=== PATIENT | male | born 1975 | race Caucasian/White ===

== ENCOUNTER → 2020-12-23 | Day surgery (SDC) | payer OTHER ==
[~2020-12-23] MED LIST: KLOR-CON M2020 MEQ PO; LISINOPRIL-HCT1 EAC2 PO; VITAMIN D310 MC2 PO
--- NOTE | ~2020-12-23 | PROC ---
[address] [address] PROCEDURE REPORT Name: JERE BURROUGHS Room: [facility]#: [id number] Admission: 12/23/20 Attend Phys: Bladimir Vaca DO Discharge: Date of : 73 Report #: [id number] THIS REPORT FOR: cc: MARY RAY DO Physician not on staff [facility],Medical Records Staff ~ For GI report, please see the Provation report in Perceptive 7 content. By: [id number] Records Staff [facility] /STELLA
[2020-12-23 09:24] LABS: HEMATOCRIT 43.8 % (42.0-52.0); MCH 27.8 pg (26.0-34.0); MCHC 34.4 g/dL (28.0-37.0); MCV 80.8 fL (80.0-100.0); MPV 7.1 fl. (7.2-11.1); RBC 5.41 mil/uL (4.50-6.00); WBC 5.1 thou/uL (4.0-11.0)
[2020-12-23 09:31] LABS: CALCIUM 9.3 mg/dL (8.5-10.1); CREATININE 1.1 mg/dL (0.6-1.3); POTASSIUM 3.5 mmol/L (3.5-5.1)
--- NOTE | 2020-12-23 13:36 | EKG ---
[place] [address] ELECTROCARDIOGRAM REPORT Name: HEIKEJERE Vega Room: [facility]#: [id number] Admission: 12/23/20 Attend Phys: Bladimir Vaca, Discharge: Date of : 73 Date of Service: 12/23/20 0943 Report #: [id number] THIS REPORT FOR: //name// [facility] Test Date: 2020-12-23 Test Time: 09:43:59 Pat Name: JERE BURROUGHS Department: Room: Gender: Nut Feeder: : 1975 Requested By: Bianca Del Angel Order Number: [id number] Harini MD: Moe Garrison Measurements Intervals [place] Rate: 70 P: 46 NH: 175 QRS: -32 QRSD: 115 T: 36 QT: 384 QTc: 415 Interpretive Statements Sinus rhythm Left ventricular hypertrophy Anterior ST elevation, probably due to LVH No previous ECG available for comparison Electronically Signed On 12-23-2020 13:35:39 CDT by Moe Garrison [email or web address] <ELECTRONICALLY SIGNED> By: Moe Garrison MD, [facility] 12/23/20 1335 0943 0943 Moe Garrison MD, [facility] /EPI
--- NOTE | 2020-12-29 11:07 | PATH ---
[address] [address] PATHOLOGY RPT PROCEDURE Name: KAN BURROUGHS Room: [facility]#: [id number] Admission: 12/23/20 Date of : 73 Discharge: Report #: [id number] Path Case #: [id number] [facility] Accession Number: [id number] . 01 Material submitted: . PART A: colon - PROXIMAL ASCENDING COLON POLYP COLD SNARE. Modifiers: proximal, ascending PART B: colon - PROXIMAL TRANSVERSE COLON POLYP HOT SNARE. Modifiers: proximal, transverse PART C: colon - PROXIMAL TRANSVERSE COLON POLYP X2 HOT SNARE. Modifiers: proximal, transverse, X2 PART D: splenic flexure - SPLENIC FLEXURE POLYP HOT SNARE PART E: colon - DESCENDING COLON POLYP HOT SNARE. Modifiers: descending PART F: sigmoid colon - SIGMOID POLYP X3 COLD SNARE. Modifiers: X3 . 01 Clinical history: . EGD AND COLONOSCOPY OBESITY, PER PROCEDURAL EXAM, COLON CANCER SCREEN . 02 Diagnosis: A. Large bowel "proximal ascending colon polyp - cold snare": - Tubular adenoma; negative for high grade dysplasia and malignancy. . B. Large bowel "proximal transverse colon polyp - hot snare": - Tubulovillous adenoma with focal high grade dysplasia. - Biopsy margin negative for dysplasia and malignancy. - Please see comment. . C. Large bowel "proximal transverse colon polyp x 2 - hot snare": - Tubular adenoma; negative for high grade dysplasia and malignancy. . D. Large bowel "splenic flexure polyp hot snare": - Tubular adenoma; negative for high grade dysplasia and malignancy. . E. Large bowel "descending colon polyp - hot snare": - Tubular adenoma; negative for high grade dysplasia and malignancy. . F. Large bowel "sigmoid polyp x 3 - cold snare": - Hyperplastic polyp; negative for dysplasia and malignancy. LBQ 12/26/2020 1330 Local . 02 Comment: The proximal transverse colon polyp consists of a tubulovillous adenoma with an area of high grade dysplasia identified on the surface epithelium of the polyp. There is no invasion into the stalk. The resection margin is free of dysplasia as well. The material from specimen B has been seen in co-review with Dr. Davina Betancourt and she concurs with the diagnosis on 12/26/2020. [place] [address] PATHOLOGY RPT PROCEDURE Name: HEIKEKAN Gary [id number] Admission: 12/23/20 Date of : 73 Discharge: Report #: [id number] Path Case #: [id number] (MLK/db; 12/26/2020) . 02 Electronically signed: . Kerry Queen MD, Pathologist NPI- [id number] . 01 Gross description: . A. The specimen is received in formalin, labeled "[place]ike, Kan, proximal ascending colon polyp + cold snare" and consists of a huffman irregular tissue measuring 0.2 x 0.2 x 0.2 cm which is submitted in toto in A1. . B. The specimen is received in formalin, labeled "Heike, Kan, proximal transverse colon polyp-hot snare" and consists of a brown-huffman polypoid tissue (1.9 x 1.8 x 1.2 cm). The proposed surgical margin is inked black. The specimen fragments upon serially sectioning and is submitted sequentially, entirely in B1-B4. . C. The specimen is received in formalin, labeled "Heike, Kan, proximal transverse colon polyp-hot snare x 2" to brown-huffman irregular polypoid tissues aggregating 0.8 x 0.5 x 0.3 cm which are submitted in toto in C1. . D. The specimen is received in formalin, labeled "Heike, Kan, splenic flexure polyp hot snare" and consists of a brown-huffman polypoid tissue (0.5 x 0.5 x 0.4 cm). The surgical margin is inked black. The specimen is bisected and submitted entirely in D1. . E. The specimen is received in formalin, labeled "Heike, Kan, descending colon polyp hot snare" and consists of a brown-huffman polypoid tissue measuring 0.7 x 0.4 x 0.4 cm. The surgical margin is inked black. The specimen is trisected and submitted entirely in E1. . F. The specimen is received in formalin, labeled "Heike, Kan, sigmoid polyp x3- cold snare" and consists of 3 huffman irregular tissue measuring 0.6 x 0.5 x 0.2 cm which are submitted in toto in F1.([place]; 12/24/2020) DKA/DKA 12/24/2020 1130 Local . 02 Pathologist provided ICD-10: D12.2, D12.3, D12.5, D12.4, K63.5 . 02 CPT . 990700, 029391, 809187, 662203, 890224, 034474 Specimen Comment: A courtesy copy of this report has been sent to [phone] Specimen Comment: [id number] Specimen Comment: Report sent to / DR RAY Specimen Comment: A duplicate report has [place] [address] PATHOLOGY RPT PROCEDURE Name: KAN BURROUGHS Room: [facility]#: [id number] Admission: 12/23/20 Date of : 73 Discharge: Report #: [id number] Path Case #: [id number] updates. Performed at: 01 [facility] [address] [id number] MD Celso Cloud MD Phone: [phone] Performed at: 02 [facility] [address] [id number] MD Mukund Espino MD Phone: [phone]
== END | disposition home or self-care (01) ==
LOC: M.SUR 05:25
PROVIDERS: Anesthesiology; ATTEND Internal Medicine Gastroenterology
DX: Z12.11 Encounter for screening for malignant neoplasm of colon (principal); E66.01 Morbid (severe) obesity due to excess calories; D12.2 Benign neoplasm of ascending colon; D12.3 Benign neoplasm of transverse colon; D12.4 Benign neoplasm of descending colon; K64.4 Residual hemorrhoidal skin tags; G47.30 Sleep apnea, unspecified; K21.9 Gastro-esophageal reflux disease without esophagitis; F41.9 Anxiety disorder, unspecified; Z98.890 Other specified postprocedural states; Z79.899 Other long term (current) drug therapy; Z20.822 Contact with and (suspected) exposure to COVID-19; Z88.0 Allergy status to penicillin